=== PATIENT | male | born 1980 | race Caucasian/White ===

== ENCOUNTER → 2021-06-15 | Day surgery (SDC) | payer OTHER ==
[~2021-06-15] MED LIST: GLYCOPYRROLATE 1 MG/5 ML VIAL. ONE; IPRATRPIUM/ALBUTEROL 0.5/2.5MG 3 ML NEBU. NEB PRN; IV RINGERS SOLUTION,LACTATED 1,000 ML IV SCH; LIDOCAINE 2% PF 5 ML VIAL. ONE; MIDAZOLAM HCL PF 2 MG/2 ML VIAL. IV ONE; ONDANSETRON PF 4 MG/2 ML VIAL. IV PRN; PROPOFOL 10,000 MCG/ML (20ML) VIAL IV ONE
--- NOTE | 2021-06-15 09:41 | PDOC1 ---
History of Present Illness Reason for Visit: Colonoscopy History of Present Illness 41-year-old male with a strong family history of colon cancer in his father diagnosed at a young age Allergies: Coded Allergies: No Known Drug Allergies (Unverified , 06/03/21) Past Medical History Cardiac: No pertinent hx Pulmonary: No pertinent hx GI: No pertinent hx Heme/Onc: No pertinent hx Hepatobiliary: No pertinent hx Psych: No pertinent hx Musculoskeletal: No pertinent hx Rheumatologic: No pertinent hx Infectious disease: No pertinent hx ENT: No pertinent hx Renal/: No pertinent hx Endocrine: No pertinent hx Dermatology: No pertinent hx Past Surgical History: No pertinent history Family History: Cancer (Colon cancer) Past Social History Smoke: No Alcohol: none Drugs: None Lives: with Family Review of Systems Review Of Systems Fourteen system , review of systems has been reviewed. See HPI for pertinent positives and negative responses, other young all other systems are negative, non pertinent or non contributory Medications Current Medications Ondansetron HCl (Zofran) 4 mg PRN Q6HRS PRN IV Nausea, 1st Choice; Start 06/15/21 at 08:00; Stop 06/16/21 at 07:59 Albuterol/ Ipratropium (Duoneb) 3 ml 1X PRN PRN NEB Shortness of Breath; Start 06/15/21 at 08:00; Stop 06/16/21 at 07:59 Midazolam HCl (Versed) 2 mg 1X ONCE IV ; Start 06/15/21 at 08:00; Stop 06/15/21 at 08:03; Status DC Lactated Ringer's 1,000 ml @ 125 mls/hr Q8H IV Last administered on 06/15/21at 08:36; Start 06/15/21 at 08:00; Stop 06/15/21 at 19:59 Exam Vital Signs Vital Signs Date Time Temp Pulse Resp B/P (MAP) Pulse Ox O2 Delivery O2 Flow Rate FiO2 06/15/21 08:24 97.7 77 14 123/90 (101) 99 Room Air General Appearance: Alert, Oriented X3, Cooperative, No acute distress HEENT: EOMI Respiratory: Clear to auscultation, Normal air movement Heart: Regular rate, No murmurs Abdominal: Normal bowel sounds, Soft, No tenderness Extremities: No edema Skin: No significant lesion Neuro: Normal speech Psych/Mental Status: Mental status NL Assessment/Plan Assessment/Plan Strong family history of colon cancer colon cancer screening colonoscopy COURSE Allergies Coded Allergies Type Severity Reaction Last Updated Verified No Known Drug Allergies 06/03/21 No Current Medications Medications (Trade) Dose Ordered Sig/Josephine Route PRN Reason Start Time Stop Time Status Last Admin Dose Admin Ondansetron HCl (Zofran) 4 mg PRN Q6HRS PRN IV Nausea, 1st Choice 06/15/21 08:00 06/16/21 07:59 Albuterol/ Ipratropium (Duoneb) 3 ml 1X PRN PRN NEB Shortness of Breath 06/15/21 08:00 06/16/21 07:59 Midazolam HCl (Versed) 2 mg 1X ONCE IV 06/15/21 08:00 06/15/21 08:03 DC Lactated Ringer's 1,000 ml @ 125 mls/hr Q8H IV 06/15/21 08:00 06/15/21 19:59 06/15/21 08:36 Orders Procedure Category Date Status Time Vital Signs, Per [facility] 06/15/21 In Process Protocol 07:59 Pulse Oximetry: [facility] 06/15/21 In Process Standing Order 07:59 Cat Swamper [facility] 06/15/21 In Process 07:59 Elevate Head Of Bed [facility] 06/15/21 In Process 07:59 Discharge From [facility] 06/15/21 In Process Hospital 07:[address] [facility] 06/15/21 In Process (Zofran) 08:00 Ipratrpium/Albuterol [facility] 06/15/21 In Process 0.5/2.5mg (Duoneb) 08:00 Anesthesia Adult [facility] 06/15/21 In Process Pre-Op Pr 07:59 Midazolam Hcl Pf [facility] 06/15/21 Complete (Versed) 08:00 Vital Signs, Per [facility] 06/15/21 In Process Protocol 07:59 Pulse Ox - [facility] 06/15/21 In Process Intermittent 07:[address] [facility] 06/15/21 In Process Solution,Lactated (Iv 08:00 Vital Signs Date Time Temp Pulse Resp B/P (MAP) Pulse Ox O2 Delivery O2 Flow Rate FiO2 06/15/21 08:24 97.7 77 14 123/90 (101) 99 Room Air Justification of Admission: Justification of Admission: Justification of Admission Dx: N/A JATINDER REYES MD Jun 15, 2021 09:41
[2021-06-15 11:09] VITALS: BP 110/77
--- NOTE | 2021-06-17 17:06 | PATHOLOGY ---
[facility] Accession Number: [id number] . 01 Material submitted: . colon - POLYP AT 15 CM. Modifiers: AT 15CM . 01 Clinical history: . FAM HX COLON CA COLONOSCOPY . 02 Diagnosis: Colon biopsy, polyp at 15 cm: - Hyperplastic polyp. ([facility]; 06/17/2021) [facility] 06/17/2021 0830 Local . 02 Comment: There are no adenomatous changes or evidence of malignancy. ([facility]; 06/17/2021) . . . 02 Electronically signed: . Chris Mcnair MD, Pathologist NPI- [id number] . 01 Gross description: . The specimen is received in formalin, labeled "Kuldip Dodson, polyp at 15 cm". Received is a single segment of pale chen tissue measuring 0.4 cm in maximum dimensions. The specimen is submitted entirely in cassette A1. ([facility]; 06/16/2021) N[facility]/N[facility] 06/16/2021 1909 Local . 02 Pathologist provided ICD-10: K63.5 . 02 CPT . 921768 Specimen Comment: A courtesy copy of this report has been sent to [phone], [phone] Specimen Comment: [id number] Specimen Comment: Report sent to / DR MUNIZ Performed at: 01 [facility] [address], [place] [id number] MD Elder Rajput MD Phone: [phone] Performed at: 02 [facility] [address] [place], [place] [id number] MD Chris Mcnair MD Phone: [phone]
== END | disposition home or self-care (01) ==
LOC: SURG 08:18
PROVIDERS: ATTEND Surgery
DX: Z12.11 Encounter for screening for malignant neoplasm of colon (principal); Z80.0 Family history of malignant neoplasm of digestive organs; K63.5 Polyp of colon; K57.30 Diverticulosis of large intestine without perforation or abscess without bleeding; Z20.822 Contact with and (suspected) exposure to COVID-19
CPT/HCPCS: 45380; 88305; C9803; J2001; J2704; J3490; J7120; U0003